=== PATIENT | female | born 1970 | race Caucasian/White ===

== ENCOUNTER 2016-05-24 18:57 | Emergency (ER) | payer OTHER ==
[~2016-05-24] VITALS: Ht 160 cm; Wt 58.2 kg
[~2016-05-24 18:57] MED LIST: IBUP800T25 PO; ULT50 PO
[2016-05-24 19:27] VITALS: Ht 160 cm; Wt 58.2 kg
[2016-05-24 22:41] LABS: URINE BLOOD (Dip) POC Trace-lysed (NEGATIVE)
--- NOTE | 2016-05-24 22:57 | ERD ---
ER Documentation Chief Complaint Date/Time DATE: 05/24/16 TIME: 22:54 Chief Complaint fell this AM, no LOC, c/o lower back pain. HPI His is a Is a 45 her old female who presents to the emergency department today complaining of back pain and hip pain and arm pain after slipping at work and falling down some stairs. Patient states that she is able to walk but she has pain that is worse with sitting. States she took Motrin for the pain. Denies any hematuria or dysuria ROS All systems reviewed and are negative except as per history of present illness. Medications Home Meds Active Scripts Cyclobenzaprine Hcl* (Cyclobenzaprine Hcl*) 10 Mg Tablet, 10 MG PO QHS, #7 TAB Prov:RIMA WHITE PA-C 05/25/16 Naproxen* (Naprosyn*) 500 Mg Tablet, 500 MG PO BID Y for PAIN AND/OR INFLAMMATION, #30 TAB Prov:RIMA WHITE PA-C 05/25/16 Hydrocodone/Acetaminophen ([place] 5-325 Tablet) 1 Each Tablet, 1 TAB PO Q6H Y for PAIN, #20 TAB Prov:RIMA WHITE PA-C 05/25/16 Tramadol HCl (Tramadol HCl) 50 Mg Tablet, 50 MG PO Q6 Y for PAIN, #10 TAB Prov:HENRY CONNELL PA-C 01/09/16 Ibuprofen* (Motrin*) 800 Mg Tab, 800 MG PO Q6H Y for PAIN AND OR ELEVATED TEMP, #30 TAB Prov:HENRY CONNELL PA-C 01/09/16 Allergies Allergies: Coded Allergies: No Known Allergy (Unverified , 01/09/16) PMhx/Soc Hx Alcohol Use: No Hx Substance Use: No Hx Tobacco Use: No Physical Exam Vitals Vital Signs Date Time Temp Pulse Resp B/P Pulse Ox O2 Delivery O2 Flow Rate FiO2 05/24/16 19:27 98.3 89 20 148/84 98 Physical Exam Const: No acute distress Head: Atraumatic Eyes: Normal Conjunctiva ENT: Normal External Ears, Nose and Mouth. Neck: Full range of motion..~ No meningismus. Resp: Clear to auscultation bilaterally Cardio: Regular rate and rhythm, no murmurs Abd: Soft, non tender, non distended. Normal bowel sounds Skin: No petechiae or rashes Back: Lumbar spine midline tenderness and left-sided paraspinal tenderness. Evidence of ecchymosis over lumbar spine. And left-sided flank. Ext: Left forearm with hematoma and ecchymosis. No obvious deformity. A mild effusion. Left hand with pain over second metatarsal and second digit with not as deformity, no effusion. No ecchymosis. Pulses 2+. Distal neurovascularly intact. Neur: Awake and alert Psych: Normal Mood and Affect Results 24 hrs Laboratory Tests Test 05/24/16 22:40 Bedside Urine Blood Trace-lysed Bedside Urine Glucose (UA) Negative Bedside Urine Ketones (LAB) Negative Bedside Urine Leukocyte Esterase (L Negative Bedside Urine Nitrite (LAB) Negative Bedside Urine Protein (LAB) Negative Bedside Urine pH (LAB) 6.0 Current Medications Medications (Trade) Dose Ordered Sig/Jin Route PRN Reason Start Time Stop Time Status Last Admin Dose Admin Acetaminophen/ Hydrocodone Bitart ([place] (5/325)) 1 tab ONCE ONCE PO 05/24/16 23:00 05/24/16 23:01 DC 05/24/16 23:10 Patient: MARIA R WILEY : 1970 Age: 45 Sex: F MR #: [id number] DOS: 05/24/16 0000 Ordering MD: RIMA WHITE PA-C Location: [facility] Room/Bed: PROCEDURE: XR Forearm. CLINICAL INDICATION: trauma, fall TECHNIQUE: AP and lateral views of the left forearm were obtained. COMPARISON: No prior studies are available for comparison. FINDINGS: There is normal mineralization and alignment. No fracture or osseous lesion is identified. There are normal joints without evidence of arthritis or effusion. The soft tissues are unremarkable. IMPRESSION: Normal radiographs of the left forearm. No evidence of fracture. RPTAT: HGAS .Luis Alberto Sotelo MD, Date Time Electronically viewed and signed by .Luis Alberto Sotelo MD, on 05/25/2016 00: 18 .S/ CC: RIMA WHITE PA-C DIAGNOSTIC IMAGING REPORT Patient: MARIA R WILEY : 1970 Age: 45 Sex: F MR #: [id number] DOS: 05/24/16 0000 Ordering MD: RIMA WHITE PA-C Location: [facility] Room/Bed: PROCEDURE: XR Hand. CLINICAL INDICATION: Left second digit pain. TECHNIQUE: AP, lateral and oblique views of the left hand were obtained. COMPARISON: No prior studies are available for comparison. FINDINGS: The distal radius and ulna are normal in appearance. The radiocarpal joint is maintained. The carpal bones and intercarpal joints are normal in appearance. The first carpometacarpal joint is normal. There is no periarticular osteopenia or erosive changes. The metacarpophalangeal and interphalangeal joints are normal. There is no soft tissue swelling or abnormal calcification. There is no evidence of fracture. IMPRESSION: 1. Normal radiographs of the left hand. No evidence of fracture or significant arthritis. RPTAT: HGAS .Luis Alberto Sotelo MD, MD Date Time Electronically viewed and signed by .Luis Alberto Sotelo MD, on 05/25/2016 00: 19 .S/ CC: RIMA WHITE PA-C Patient: MARIA R WILEY : 1970 Age: 45 Sex: F MR #: [id number] DOS: 05/24/16 0000 Ordering MD: RIMA WHITE PA-C Location: [facility] Room/Bed: PROCEDURE: XR Hip. CLINICAL INDICATION: Trauma status post fall. TECHNIQUE: AP and frog lateral views of the left hip were performed. COMPARISON: None available FINDINGS: There is normal appearance of the left hip joint without significant sclerosis or joint space narrowing. The proximal left femur is normal in appearance. There is no evidence of fracture. The acetabulum is intact. There is no osteopenia. The visualized sacrum is unremarkable. The soft tissues are normal in appearance. IMPRESSION: 1. Normal radiographs of the left hip. No evidence of fracture or dislocation. RPTAT: HGAS .Luis Alberto Sotelo MD, MD Date Time Electronically viewed and signed by .Luis Alberto Sotelo MD, MD on 05/25/2016 00: 19 .S/ CC: RIMA WHITE PA-C Patient: MARIA R WILEY : 1970 Age: 45 Sex: F MR #: [id number] DOS: 05/24/16 0000 Ordering MD: RIMA WHITE PA-C Location: [facility] Room/Bed: PROCEDURE: XR Lumbar Spine. CLINICAL INDICATION: Lumbar spine pain status post trauma. TECHNIQUE: AP, lateral, and cone-down lateral view of the lumbar spine were obtained. COMPARISON: No prior studies are available for comparison. FINDINGS: The alignment of the lumbar spine is within normal limits. There is a possible 10% anterior compression deformity of the L3 vertebral body, incompletely evaluated. The remaining vertebral body heights are maintained. There is preservation of the intervertebral disc spaces. There is no significant facet spondylosis. The neural foramina appear patent. The paraspinal soft tissues unremarkable. IMPRESSION: 1. Possible 10% anterior compression deformity of the T12 vertebral body, incompletely evaluated. CT is recommended for further evaluation. 2. No significant degenerative disc disease. RPTAT: HGAS .Luis Alberto Sotelo MD, Date Time Electronically viewed and signed by .Luis Alberto Sotelo MD, MD on 05/25/2016 00: 18 .S/ CC: RIMA WHITE PA-C Patient: MARIA R WILEY : 1970 Age: 45 Sex: F MR #: [id number] DOS: 05/25/16 0000 Ordering MD: RIMA WHITE PA-C Location: [facility] Room/Bed: PROCEDURE: CT Thoracic Spine without contrast. CLINICAL INDICATION: Trauma TECHNIQUE: Noncontrast CT of the thoracic spine was performed with axial images. Coronal and sagittal images were also performed. The administered radiation dose was CTDI vol = 12.9 mGy, DLP = 448 mGy-cm. COMPARISON: There are no similar studies submitted for comparison. FINDINGS: Vertebral body stature and alignment are maintained. No acute fracture or subluxation is identified. The paravertebral and paraspinous soft tissues are unremarkable. Calcified right hilar lymph nodes are noted. IMPRESSION: No acute fracture or subluxation. RPTAT: HIKT .Jack Mancini MD, MD Date Time Electronically viewed and signed by .Jack Mancini MD, MD on 05/25/2016 01:57 .T/ CC: RIMA WHITE PA-C DIAGNOSTIC IMAGING REPORT Patient: MARIA R WILEY : 1970 Age: 45 Sex: F MR #: [id number] DOS: 05/25/16 0000 Ordering MD: RIMA WHITE PA-C Location: [facility] Room/Bed: PROCEDURE: CT Lumbar Spine without contrast. CLINICAL INDICATION: Back pain. TECHNIQUE: The study was performed on a [employer] 64-slice VCT scanner. Contiguous axial images using 2.5 mm slice thickness were obtained without contrast. Sagittal and coronal reformations were created from the raw axial data. The images were reviewed on a PACS workstation. Exam CTD/vol = 18.35 mGy. Total exam DLP = 617.43 mGy-cm. COMPARISON: None. FINDINGS: There is a small fracture of the left transverse process of L2. Lumbar vertebral body heights and alignment are within normal limits. At T12-L1, the disk height is within normal limits. There is no central canal or neural foraminal stenosis. At L1-L2, the disk height is within normal limits. There is no central canal or neural foraminal stenosis. At L2-L3, the disk height is within normal limits. There is no central canal or neural foraminal stenosis. At L3-L4, the disk height is within normal limits. There is no central canal or neural foraminal stenosis. At L4-L5, the disk height is within normal limits. There is no central canal or neural foraminal stenosis. At L5-S1, the disk height is within normal limits. There is no central canal or neural foraminal stenosis. There is no paraspinal mass or collection. There are small renal calculi bilaterally measuring up to 2 mm in size. IMPRESSION: Small fracture of the left transverse process of L2. Bilateral nonobstructing renal calculi. .Jamie Dimas MD MD Date Time Electronically viewed and signed by .Jamie Dimas MD, MD on 05/25/2016 02:14 Procedures/[facility] This is a 45 old female who presents to the emergency department today after she fall that she sustained at work. On physical exam patient had multiple areas of pain and bruising and therefore did obtain imaging. Per the radiology report images of the lumbar spine show a possible 10% anterior compression deformity of the T12 vertebral body. Incompletely evaluated. CT is recommended for further evaluation. There is no significant degenerative disc disease. There is no significant facet spondylosis. Neural foramina appear patent. Images of the left hip shows no evidence of fracture dislocation. Acetabulum is intact. Images of the left forearm are unremarkable. There is no acute fracture or dislocation. Images of the left hand are unremarkable. There is no acute fracture dislocation. The patient's findings on plain film I did obtain a CT scan of the lumbar and thoracic spine. Lumbar spine CT is a small fracture of the left transverse process of L2. There are bilateral nonobstructing renal calculi. Patient's fracture of her left transverse processes of L2 . causative of her pain versus contusion. Thoracic spine CT is no acute fracture or subluxation. Results of the images were explained to the patient. Was given a [place] here in the emergency department. I will give her a perception for short course of [place] for home as well as Naprosyn and Flexeril. She was instructed to ice. At this time the patient is stable for discharge and outpatient management. Patient should follow up with their PCP in the next 1-2 days for referral to orthopedic. They may return to the emergency department sooner for any persistent or worsening of symptoms. Patient understood and agreed with the plan. Departure Diagnosis: Primary Impression: Lumbar transverse process fracture Encounter type: initial encounter Fracture type: closed Qualified Code: S32.008A - Lumbar transverse process fracture, closed, initial encounter Condition: Fair RIMA WHITE PA-C May 24, 2016 22:57
[2016-05-24] MEDS ORDERED: HYDROCODONE/APAP (5/325) TAB PO ONE (23:00)
--- NOTE | 2016-05-25 00:18 | RADRPT ---
PROCEDURE: XR Forearm. CLINICAL INDICATION: trauma, fall TECHNIQUE: AP and lateral views of the left forearm were obtained. COMPARISON: No prior studies are available for comparison. FINDINGS: There is normal mineralization and alignment. No fracture or osseous lesion is identified. There are normal joints without evidence of arthritis or effusion. The soft tissues are unremarkable. IMPRESSION: Normal radiographs of the left forearm. No evidence of fracture. RPTAT: HGAS .Luis Alberto Sotelo MD, MD Date Time Electronically viewed and signed by .Luis Alberto Sotelo MD, on 05/25/2016 00:18 .S/
--- NOTE | 2016-05-25 00:18 | RADRPT ---
PROCEDURE: XR Lumbar Spine. CLINICAL INDICATION: Lumbar spine pain status post trauma. TECHNIQUE: AP, lateral, and cone-down lateral view of the lumbar spine were obtained. COMPARISON: No prior studies are available for comparison. FINDINGS: The alignment of the lumbar spine is within normal limits. There is a possible 10% anterior sebastien tawanda deformity of the L3 vertebral body, incompletely evaluated. The remaining vertebral body heigh ts are maintained. There is preservation of the intervertebral disc spaces. There is no significan t facet spondylosis. The neural foramina appear patent. The paraspinal soft tissues unremarkable. IMPRESSION: 1. Possible 10% anterior compression deformity of the T12 vertebral body, incompletely evaluated. CT is recommended for further evaluation. 2. No significant degenerative disc disease. RPTAT: HGAS .Luis Alberto Sotelo MD, Date Time Electronically viewed and signed by .Luis Alberto Sotelo MD, on 05/25/2016 00:18 .S/
--- NOTE | 2016-05-25 00:19 | RADRPT ---
PROCEDURE: XR Hand. CLINICAL INDICATION: Left second digit pain. TECHNIQUE: AP, lateral and oblique views of the left hand were obtained. COMPARISON: No prior studies are available for comparison. FINDINGS: The distal radius and ulna are normal in appearance. The radiocarpal joint is maintained. The carp al bones and intercarpal joints are normal in appearance. The first carpometacarpal joint is normal . There is no periarticular osteopenia or erosive changes. The metacarpophalangeal and interphalan geal joints are normal. There is no soft tissue swelling or abnormal calcification. There is no mili dence of fracture. IMPRESSION: 1. Normal radiographs of the left hand. No evidence of fracture or significant arthritis. RPTAT: HGAS .Luis Alberto Sotelo MD, Date Time Electronically viewed and signed by .Luis Alberto Sotelo MD, on 05/25/2016 00:19 .S/
--- NOTE | 2016-05-25 00:20 | RADRPT ---
PROCEDURE: XR Hip. CLINICAL INDICATION: Trauma status post fall. TECHNIQUE: AP and frog lateral views of the left hip were performed. COMPARISON: None available FINDINGS: There is normal appearance of the left hip joint without significant sclerosis or joint space narrow ing. The proximal left femur is normal in appearance. There is no evidence of fracture. The aceta bulum is intact. There is no osteopenia. The visualized sacrum is unremarkable. The soft tissues are normal in appearance. IMPRESSION: 1. Normal radiographs of the left hip. No evidence of fracture or dislocation. RPTAT: HGAS .Luis Alberto Sotelo MD, MD Date Time Electronically viewed and signed by .Luis Alberto Sotelo MD, on 05/25/2016 00:19 .S/
--- NOTE | 2016-05-25 01:57 | RADRPT ---
PROCEDURE: CT Thoracic Spine without contrast. CLINICAL INDICATION: Trauma TECHNIQUE: Noncontrast CT of the thoracic spine was performed with axial images. Coronal and sagitta l images were also performed. The administered radiation dose was CTDI vol = 12.9 mGy, DLP = 448 m Gy-cm. COMPARISON: There are no similar studies submitted for comparison. FINDINGS: Vertebral body stature and alignment are maintained. No acute fracture or subluxation is identified. The paravertebral and paraspinous soft tissues are unremarkable. Calcified right hilar lymph nodes are noted. IMPRESSION: No acute fracture or subluxation. RPTAT: HIKT .Jack Mancini MD, MD Date Time Electronically viewed and signed by .Jack Mancini MD, on 05/25/2016 01:57 .T/
--- NOTE | 2016-05-25 02:14 | RADRPT ---
PROCEDURE: CT Lumbar Spine without contrast. CLINICAL INDICATION: Back pain. TECHNIQUE: The study was performed on a [employer] 64-slice VCT scanner. Contiguous axial images using 2.5 mm slice thickness were obtained without contrast. Sagittal and coronal reformati ons were created from the raw axial data. The images were reviewed on a PACS workstation. Exam CTD/vol = 18.35 mGy. Total exam DLP = 617.43 mGy-cm. COMPARISON: None. FINDINGS: There is a small fracture of the left transverse process of L2. Lumbar vertebral body heights and a lignment are within normal limits. At T12-L1, the disk height is within normal limits. There is no central canal or neural foraminal s tenosis. At L1-L2, the disk height is within normal limits. There is no central canal or neural foraminal st enosis. At L2-L3, the disk height is within normal limits. There is no central canal or neural foraminal st enosis. At L3-L4, the disk height is within normal limits. There is no central canal or neural foraminal st enosis. At L4-L5, the disk height is within normal limits. There is no central canal or neural foraminal st enosis. At L5-S1, the disk height is within normal limits. There is no central canal or neural foraminal st enosis. There is no paraspinal mass or collection. There are small renal calculi bilaterally measuring up to 2 mm in size. IMPRESSION: Small fracture of the left transverse process of L2. Bilateral nonobstructing renal calculi. .Jamie Dimas MD, MD Date Time Electronically viewed and signed by .Jamie Dimas MD, MD on 05/25/2016 02:14 .T/
[2016-05-25] MEDS ORDERED: HYDR-906 PO (02:23)
[2016-05-25] MEDS ORDERED: NAPR-260 PO (02:24)
[2016-05-25] MEDS ORDERED: CYCL-319 PO (02:24)
[2016-05-25 02:32] VITALS: BP 135/80; PULSE 60; RESP 17; TEMP 98.3
== END 2016-05-25 02:42 | disposition home or self-care (01) ==
LOC: FTE 18:57
DX: S32.028A Other fracture of second lumbar vertebra, initial encounter for closed fracture (principal); W10.9XXA Fall (on) (from) unspecified stairs and steps, initial encounter; Y92.89 Other specified places as the place of occurrence of the external cause
CPT/HCPCS: 72100; 72128; 72131; 73090; 73130; 73510; 81003; Z7610

== ENCOUNTER 2017-03-20 06:49 | Day surgery (SDC) | payer OTHER ==
[2017-03-20] VITALS (19 sets, daily range): BP systolic 112–138; BP diastolic 65–82; PULSE 66–94; RESP 6–29; Ht 157.5 cm; Wt 73.6 kg
[~2017-03-20] VITALS: Ht 157.5 cm; Wt 73.6 kg
[~2017-03-20 06:49] MED LIST changes: +CEFAZOLIN 2 GM/50 ML (PMX) 50 ML IVPB SCH; +CYCL-319 PO; +HYDR-906 PO; +NAPR-260 PO; +SOD CHLORIDE 0.9% 1,000 ML IV SCH; +TRAM50TA2 PO; -ULT50 PO
[2017-03-20] MEDS ORDERED: SUCR1TAB56 PO (07:25)
[2017-03-20] MEDS ORDERED: LORA10TA3 PO (07:26)
[2017-03-20] MEDS ORDERED: GABA100C14 PO (07:26)
[2017-03-20] MEDS ORDERED: NEOSTIGMINE 3 MG/3 ML SYRINGE ONE (08:33)
[2017-03-20] MEDS ORDERED: GLYCOPYRROLATE 0.4 MG INJ ONE (08:33)
[2017-03-20] MEDS ORDERED: CEFAZOLIN 1 GM INJ ONE (08:33)
[2017-03-20] MEDS ORDERED: ROCURONIUM 50 MG INJ ONE (08:33)
[2017-03-20] MEDS ORDERED: MIDAZOLAM 1 MG/ML 2 ML INJ ONE (08:33)
[2017-03-20] MEDS ORDERED: PROPOFOL 20 ML ONE (08:33)
[2017-03-20] MEDS ORDERED: KETOROLAC 30 MG INJ ONE (08:34)
[2017-03-20] MEDS ORDERED: ROPIVACAINE 0.5 % 30 ML VIAL ONE (08:34)
[2017-03-20] MEDS ORDERED: METOCLOPRAMIDE 10 MG INJ ONE (08:34)
[2017-03-20] MEDS ORDERED: FAMOTIDINE 20 MG INJ ONE (08:37)
[2017-03-20] MEDS ORDERED: BUPIVACAINE 0.5% (SDV) 30 ML INJ ONE (08:42)
[2017-03-20] MEDS ORDERED: ONDANSETRON 4 MG INJ ONE (09:12)
[2017-03-20] MEDS ORDERED: EPHEDrine SULFATE 50 MG/5 ML SYG ONE (09:15)
[2017-03-20] MEDS ORDERED: DIPHENHYDRAMINE 50 MG INJ IV PRN (09:30)
[2017-03-20] MEDS ORDERED: ONDANSETRON 4 MG INJ IV PRN (09:30)
[2017-03-20] MEDS ORDERED: OXYCODONE/ACETAMINOPHEN (5/325) TAB PO PRN ×2 (09:30)
[2017-03-20] MEDS ORDERED: HYDROmorphONE (0.2 MG/ML) 10ML SYG IV PRN ×2 (09:30)
[2017-03-20] MEDS ORDERED: MEPERIDINE 25 MG INJ IV PRN (09:30)
--- NOTE | 2017-03-20 09:35 | OPR ---
Date/Time of Note Date/Time of Note DATE: 03/20/17 TIME: 09:33 Operative Report Procedure Date: Mar 20, 2017 Preoperative Diagnosis symptomatic gallstones Postoperative Diagnosis same Operation/Procedure Performed 1. laparoscopic cholecystectomy 2. therapeutic injection of subcutaneous local anesthesia Surgeon see signature line Family Living Educator none Anesthesia Type: general Estimated Blood Loss: 0 - 10 ml's Transfusion none Specimen gallbladder Grafts/Implants none Complications none Pt Condition Post Procedure: stable Indications This is a 46-year-old female was admitted gallstones. Patient required surgical excision of her gallbladder. Risks alternatives benefits and percent were discussed the patient. Patient expresses understanding consents to the operation. Procedure Description Patient taken to the OR and prepped and draped in usual sterile fashion. Surgical timeout was performed. IV antibiotics were given. Infraumbilical transverse incision was made with a 15 blade. Dissection cautery was carried down to the fascia. The fascia was grasped with Itz's and divided with curved Anderson scissors. 0 Vicryl U stitch was placed into the fascia. Blueness on trocar is introduced. Pneumoperitoneum is established. Midepigastric 12 mm optical trocar was placed under direct visualization. Right upper quadrant upper flank 5 mm optical trochars were placed under direct visualization. The gallbladder is identified and grasped and retracted in the lateral and our direction. This allowed mobilization and dissection of the cystic duct. Lateral dissection was initiated with the cautery. The cystic duct was identified the critical view is established. The cystic duct and cystic artery were divided using a 35 mm echelon vessel stapler due to thickened tissues. The staple line was reinforced with additional clips. The gallbladder was taken off the gallbladder bed. There is good hemostasis the gallbladder is retrieved using Endo Catch bag. Ports removed under direct physician. 0 Vicryl U stitch was tied down. Skin is closed using skin sandra. Therapeutic subcutaneous local anesthesia is injected throughout the port sites. Dry dressings were applied. Colby STARR Mar 20, 2017 09:35
[2017-03-20] MEDS ORDERED: HYDROCODONE/APAP (5/325) TAB PO ONE (10:00)
[2017-03-20] MEDS: HYDROmorphONE (0.2 MG/ML) 10ML SYG IV PRN ×2 (10:04→10:43)
== END 2017-03-20 12:55 | disposition home or self-care (01) ==
LOC: SDS 06:49
PROVIDERS: ATTEND Surgery
DX: K80.20 Calculus of gallbladder without cholecystitis without obstruction (principal); E78.5 Hyperlipidemia, unspecified
CPT/HCPCS: 47562; 80053; 84703; 85025; 85610; 85730; 88304; J0690; J1170; J1885; J2250; J2405; J2710; J2765; J2795; Z7512; Z7610

== ENCOUNTER 2017-07-03 06:55 | Day surgery (SDC) | END 2017-07-03 10:55 | disposition home or self-care (01) ==

== ENCOUNTER 2017-10-31 05:47 | Inpatient (IN) | END 2017-11-03 16:12 | disposition home or self-care (01) | DRG 743 ==